=== PATIENT | male | born 1975 | race Caucasian/White ===

== ENCOUNTER 2018-02-17 18:51 | Emergency (ER) | payer SELFPAY ==
[~2018-02-17] VITALS: Ht 175.3 cm; Wt 75.0 kg
[2018-02-17] MEDS ORDERED: IBUPROFEN 800MG TABLET PO ONE (19:45)
[2018-02-17] MEDS ORDERED: HYDROCODONE/ACETAMINOPHEN 5/325MG TABLET PO ONE (19:45)
[2018-02-17 22:45] VITALS: BP 112/62
== END 2018-02-18 00:30 | disposition home or self-care (01) ==
LOC: ER 21:12
DX: M25.512 Pain in left shoulder (principal); V19.9XXA Pedal cyclist (driver) (passenger) injured in unspecified traffic accident, initial encounter; Y93.89 Activity, other specified; Y92.410 Unspecified street and highway as the place of occurrence of the external cause
CPT/HCPCS: 71045; 73030; 99284; A4565

== ENCOUNTER 2019-09-11 12:48 | Emergency (ER) | payer SELFPAY ==
[~2019-09-11] VITALS: Ht 172.7 cm; Wt 65.0 kg
[2019-09-11 12:57] VITALS: BP 110/64
== END 2019-09-11 15:36 | disposition left against medical advice (07) ==
LOC: ER 12:48
DX: R10.9 Unspecified abdominal pain (principal); R11.10 Vomiting, unspecified; Z53.21 Procedure and treatment not carried out due to patient leaving prior to being seen by health care provider

== ENCOUNTER 2023-06-15 09:17 | Emergency (ER) | payer MEDICAID ==
[~2023-06-15] VITALS: Ht 177.8 cm; Wt 75.0 kg
[2023-06-15 09:18] VITALS: O2SAT 98
[2023-06-15 09:45] LABS: BASOPHILS % 0.6 % (0.0-2.0); EOSINOPHILS % 1.9 % (0.0-5.0); HEMATOCRIT. 42.3 % (42.0-52.0); HEMOGLOBIN. 14.4 g/dL (14.0-18.0); LYMPHOCYTES % 23.3 % (20.0-50.0); MEAN CORPUSCULAR HEMOGLOBIN 31.3 pg (28.0-32.0); MEAN CORPUSCULAR HGB CONC 34.1 g/dL (31.0-37.0); MEAN CORPUSCULAR VOLUME 91.6 fL (80.0-94.0); MEAN PLATELET VOLUME 7.2 fl (7.4-10.4); MONOCYTES % 6.8 % (2.0-8.0); NEUTROPHILS % 67.4 % (40.0-76.0); PLATELET 382 x1000/uL (130-400); RED BLOOD CELL COUNT 4.62 mill/uL (4.7-6.1); RED CELL DISTRIBUTION WIDTH 13.4 % (11.6-14.6); WHITE BLOOD COUNT 9.5 x1000/uL (4.5-11.0)
[2023-06-15] MEDS: SODIUM CHLORIDE 0.9% 1,000 ML IV ONE (09:54)
[2023-06-15] MEDS: NALOXONE HCL 0.4MG/ML 1ML VIAL IV PRN (09:54)
[2023-06-15 11:02] LABS: ALANINE AMINOTRANSFERASE 14 IU/L (10-49); ALBUMIN 4.6 g/dL (3.2-4.8); ASPARTATE AMINOTRANSFERASE 19 IU/L (<34); BILIRUBIN TOTAL 0.8 mg/dL (0.1-1.0); CALCIUM 8.7 mg/dL (8.7-10.4); CARBON DIOXIDE 27 mEq/L (21-32); CHLORIDE 104 mEq/L (98-107); CREATINE KINASE 80 IU/L (46-171); CREATININE 0.9 mg/dL (0.6-1.3); GLUCOSE 186 mg/dL (70-105); POTASSIUM 3.6 mEq/L (3.5-5.1); PROTEIN TOTAL 7.7 g/dL (6.0-8.3); SODIUM 137 mEq/L (136-145); UREA NITROGEN BLOOD 16 mg/dL (9-23)
[2023-06-15 11:04] LABS: ETHANOL BLOOD < 10 mg/dL (<10); TROPONIN I HIGH SENSITIVITY < 4 ng/L (3.0-53)
[2023-06-15 11:27] LABS: ACETAMINOPHEN < 2 ug/mL (10-30)
[2023-06-15 15:38] LABS: *AMPHETAMINES SCREEN URINE PRESUMPTIVE POSITIVE (NEGATIVE); *BARBITURATES SCREEN URINE NEGATIVE (NEGATIVE); *BENZODIAZEPINES SCREEN URINE NEGATIVE (NEGATIVE); *COCAINE SCREEN URINE NEGATIVE (NEGATIVE); CANNABINOID URINE SCREEN PRESUMPTIVE POSITIVE (NEGATIVE); ECSTASY MDMA SCREEN URINE CONF.TEST INDICATED (NEGATIVE); METHADONE URINE SCREEN Neg (NEGATIVE); OPIATES URINE SCREEN NEGATIVE (NEGATIVE); PHENCYCLIDINE URINE SCREEN NEGATIVE (NEGATIVE)
[2023-06-15 16:25] VITALS: BP 128/64; PULSE 85; RESP 15; TEMP 98.4
== END 2023-06-15 16:35 | disposition home or self-care (01) ==
LOC: ER 09:17
DX: F15.90 Other stimulant use, unspecified, uncomplicated (principal)
CPT/HCPCS: 80053; 80305; 80307; 80329; 80320; 82550; 82962; 85025; 84484; 36415; 71045; 70450; 70551; 96361; 96374; 99285; J2310; J7030; Z7610 ×2; G0480

== ENCOUNTER 2023-08-14 18:50 | Emergency (ER) | payer MEDICAID, OTHER ==
[~2023-08-14] VITALS: Ht 170.2 cm; Wt 162.0 kg
[2023-08-14 19:07] VITALS: O2SAT 100
[2023-08-14] MEDS: TETANUS, DIPHTHERIA, PERTUSSIS VAC/PF 0.5ML (>10YR OLD) IM ONE (19:48)
[2023-08-14] MEDS ORDERED: AMOX1TAB16 MT (20:46)
[2023-08-14 21:13] VITALS: BP 129/79; PULSE 94; RESP 14; TEMP 98.7
== END 2023-08-14 21:20 | disposition home or self-care (01) ==
LOC: ER 18:50
DX: S61.231A Puncture wound without foreign body of left index finger without damage to nail, initial encounter (principal); F15.10 Other stimulant abuse, uncomplicated; W50.3XXA Accidental bite by another person, initial encounter; Y93.89 Activity, other specified; Y92.89 Other specified places as the place of occurrence of the external cause; Y99.8 Other external cause status
CPT/HCPCS: 73140; 90471; 90715; 99283